=== PATIENT | female | born 1975 | race Caucasian/White ===

== ENCOUNTER 2022-01-12 09:32 | Emergency (ER) | payer OTHER ==
[~2022-01-12] VITALS: Ht 157.5 cm; Wt 108.6 kg
[2022-01-12] MEDS ORDERED: LEVO100 PO (10:04)
[2022-01-12] MEDS ORDERED: METO25XL PO (10:04)
[2022-01-12] MEDS ORDERED: CHOL25TA4 PO (10:04)
[2022-01-12 10:48] LABS: BASOPHILS % (AUTO) 0.5 % (0.0-2.0); EOSINOPHILS % (AUTO) 2.4 % (1.0-6.0); HEMATOCRIT 37.9 % (36-46); HEMOGLOBIN 12.8 g/dL (12.0-16.0); LYMPHOCYTES # (AUTO) 2.9 K/uL (1.0-4.8); LYMPHOCYTES % (AUTO) 32.5 % (22.0-44.0); MEAN CORPUSCULAR HEMOGLOBIN 31.9 pg (26.0-34.0); MEAN CORPUSCULAR HGB CONC 33.9 G/dL (31.0-37.0); MEAN CORPUSCULAR VOLUME 94 fL (80-100); MONOCYTES # (AUTO) 0.5 K/uL (0.1-1.0); MONOCYTES % (AUTO) 5.7 % (2.0-9.0); NEUTROPHILS # (AUTO) 5.3 K/uL (1.8-7.7); NEUTROPHILS % (AUTO) 58.9 % (40.0-70.0); PLATELET COUNT (AUTO) 397 K/uL (150-450); RED BLOOD CELL COUNT(AUTO) 4.03 MIL/uL (4.00-5.20)
[2022-01-12 10:58] LABS: ANION GAP 13 mmol/L (8-16); CALCIUM, TOTAL 9.6 mg/dL (8.8-10.5); CARBON DIOXIDE 27 mmol/L (22-29); CHLORIDE 103 mmol/L (98-107); CREATININE 0.74 mg/dL (0.60-1.30); GLUCOSE,RANDOM 103 mg/dL (70-110); POTASSIUM 4.8 mmol/L (3.5-5.1); SODIUM SERUM 143 mmol/L (136-145); UREA NITROGEN, BLOOD 15 mg/dL (7-18)
[2022-01-12 10:59] LABS: GLOMERULAR FILTR. RATE CALC > 60 mL/min (>60)
[2022-01-12 11:04] LABS: ALANINE AMINOTRANSFERASE 45 U/L (12-78); ALBUMIN 3.4 g/dL (3.4-5.0); ALKALINE PHOSPHATASE 145 U/L (46-116); ASPARTATE AMINOTRANSFERASE 21 U/L (15-37); BILIRUBIN,TOTAL 0.3 mg/dL (0.1-1.0); CREATINE KINASE, TOTAL ONLY 68 U/L (26-192); PROTHROMBIN TIME 10.5 SEC (9.4-11.6); TOTAL PROTEIN, SERUM 7.6 g/dL (6.4-8.2)
[2022-01-12 11:08] LABS: B-TYPE NATRIURETIC PEPTIDE 33 pg/mL (0-100)
[2022-01-12 11:18] VITALS: BP 126/80
== END 2022-01-12 14:01 | disposition left against medical advice (07) ==
LOC: EMS 09:35
DX: R07.89 Other chest pain (principal); I10 Essential (primary) hypertension; E03.9 Hypothyroidism, unspecified; Z81.0 Family history of intellectual disabilities
CPT/HCPCS: 71045; 80053; 82550; 83880; 84484; 85025; 85610; 85730; 93005; 99285; 36415-L1; 36415-TC